=== PATIENT | female | born 1985 | race Caucasian/White ===

== ENCOUNTER 2020-08-24 00:59 | Outpatient (CLI) | payer BC ==
[~2020-08-24] VITALS: Ht 175.3 cm; Wt 90.5 kg
[2020-08-24 01:33] VITALS: BP 138/88
== END 2020-08-24 02:40 | disposition home or self-care (01) ==
LOC: LDOP 00:59
PROVIDERS: ATTEND Obstetrics & Gynecology
DX: O26.893 Other specified pregnancy related conditions, third trimester (principal); O46.93 Antepartum hemorrhage, unspecified, third trimester; R10.9 Unspecified abdominal pain; Z3A.39 39 weeks gestation of pregnancy
CPT/HCPCS: 59025

== ENCOUNTER 2020-08-24 20:42 | Inpatient (IN) | payer BC ==
[~2020-08-24] VITALS: Ht 175.3 cm; Wt 90.5 kg
[2020-08-24] MEDS ORDERED: NEWBORN KIT ONE (20:50)
[2020-08-24] MEDS ORDERED: MISOPROSTOL 200 MCG TABLET ONE (20:52)
[2020-08-24] MEDS ORDERED: LIDOCAINE 1%, 20ML ONE (20:52)
[2020-08-24 21:00] VITALS: BP 138/89
[2020-08-24] MEDS ORDERED: FENTANYL PF 100 MCG/2ML IV PRN (21:00)
[2020-08-24] MEDS ORDERED: FENTANYL PF 100 MCG/2ML IVPush PRN (21:00)
[2020-08-24] MEDS ORDERED: CALCIUM CARBONATE 500 MG TAB.CHEW PO PRN (21:00)
[2020-08-24] MEDS ORDERED: D5%-LACTATED RINGERS 1,000 ML IV SCH (21:00)
[2020-08-24] MEDS ORDERED: LACTATED RINGERS 1,000 ML IV SCH ×2 (21:00→21:30)
[2020-08-24] MEDS ORDERED: TERBUTALINE 1 MG/ML, 1ML SQ PRN (21:00)
[2020-08-24] MEDS ORDERED: ONDANSETRON 2MG/ML, 2ML IVPush PRN (21:00)
[2020-08-24] MEDS ORDERED: TERBUTALINE 1 MG/ML, 1ML IVPush PRN (21:00)
[2020-08-24] MEDS ORDERED: OXYTOCIN 30U/ 0.9% NaCL 500ML 500 ML IV ONE (21:00)
[2020-08-24] MEDS ORDERED: FENTANYL/BUPIV./NS/PF 250 ML EPIDCONT ONE (21:07)
[2020-08-24] MEDS ORDERED: BUPIVACAINE 0.25% ONE (21:07)
[2020-08-24] MEDS ORDERED: OXYTOCIN 30U/ 0.9% NaCL 500ML 500 ML ONE (21:13)
[2020-08-24] MEDS ORDERED: AMPICILLIN 2 GM in SODIUM CHLORIDE 0.9% 100 ML IVPB STA (21:19)
[2020-08-24 21:29] LABS: BASOPHILS % (AUTO) 1 % (0-1); EOSINOPHILS % (AUTO) 0 % (1-7); LYMPHOCYTES % (AUTO) 8 % (22-44); MEAN CORPUSCULAR HEMOGLOBIN 26.1 pg (27.0-34.8); MEAN CORPUSCULAR HGB CONC 32.6 g/dL (32.4-35.8); MEAN PLATELET VOLUME 8.5 fL (7.4-10.4); MONOCYTES % (AUTO) 8 % (2-9); NEUTROPHILS % (AUTO) 84 % (42-75); PLATELET COUNT 190 x10^3/uL (130-400); RED CELL DISTRIBUTION WIDTH 17.8 % (9.6-15.2)
[2020-08-24] MEDS ORDERED: NALOXONE 0.4 MG/ML, 1ML IVPush PRN (21:30)
[2020-08-24] MEDS ORDERED: FENTANYL/BUPIV./NS/PF 250 ML EPIDCONT SCH (21:30)
[2020-08-24] MEDS ORDERED: EPHEDRINE 50 MG/ML, 1ML IVPush PRN (21:30)
[2020-08-24] MEDS ORDERED: LACTATED RINGERS 1,000 ML IVBOLUS PRN (21:30)
[2020-08-24] MEDS ORDERED: OXYTOCIN 30U/ 0.9% NaCL 500ML 500 ML IV PRN (21:30)
[2020-08-24 21:33] LABS: MD NO
[2020-08-24] MEDS ORDERED: AMPICILLIN 2 GM in SODIUM CHLORIDE 0.9% 100 ML IVPB ONE (22:00)
[2020-08-24] MEDS ORDERED: EPHEDRINE 50 MG/ML, 1ML ONE (22:41)
[2020-08-25] MEDS ORDERED: AMPICILLIN 1 GM in SODIUM CHLORIDE 0.9% 100 ML IVPB SCH (03:00)
[2020-08-25] MEDS ORDERED: SIMETHICONE 80 MG CHEW TAB PO PRN (03:00)
[2020-08-25] MEDS: OXYTOCIN 30U/ 0.9% NaCL 500ML 500 ML IV SCH ×8 (03:00→23:00)
[2020-08-25] MEDS ORDERED: ACETAMINOPHEN 325 MG TABLET PO PRN ×2 (03:00)
[2020-08-25] MEDS ORDERED: MAGNESIUM HYDROXIDE 8%, 30ML UDC PO PRN (03:00)
[2020-08-25] MEDS ORDERED: OXYcodone IR 5MG TABLET PO PRN (03:00)
[2020-08-25] MEDS ORDERED: ONDANSETRON 2MG/ML, 2ML IV PRN (03:00)
[2020-08-25] MEDS ORDERED: OXYTOCIN 10 UNITS/ML, 1ML IM PRN (03:00)
[2020-08-25] MEDS ORDERED: METHYLERGONOVINE 0.2 MG/ML IM PRN (03:00)
[2020-08-25 04:50] VITALS: BP 137/81
[2020-08-25] MEDS: IBUPROFEN 800 MG TABLET PO PRN ×3 (05:17→21:53)
[2020-08-25 07:45] VITALS: BP 106/65
[2020-08-25 10:47] LABS: BASOPHILS % (AUTO) 0 % (0-1); EOSINOPHILS % (AUTO) 0 % (1-7); LYMPHOCYTES % (AUTO) 5 % (22-44); MEAN CORPUSCULAR HEMOGLOBIN 26.6 pg (27.0-34.8); MEAN PLATELET VOLUME 8.1 fL (7.4-10.4); MONOCYTES % (AUTO) 7 % (2-9); NEUTROPHILS % (AUTO) 87 % (42-75); PLATELET COUNT 189 x10^3/uL (130-400); RED BLOOD COUNT 4.15 x10^6/uL (3.82-5.3)
[2020-08-25 10:53] LABS: MD NO
[2020-08-25 13:00] VITALS: BP 115/72
[2020-08-25] MEDS: PRENATAL VIT/IRON/FA 1 EACH TABLET PO SCH (13:10)
[2020-08-25] MEDS: OXYcodone/APAP 5/325MG TABLET PO PRN ×3 (13:13→21:53)
[2020-08-25 17:15] VITALS: BP 118/74
[2020-08-25 19:15] VITALS: BP 122/77
[2020-08-25] MEDS: DOCUSATE 100 MG CAPSULE PO PRN (21:53)
[2020-08-25 23:28] VITALS: BP 102/60
[2020-08-26] MEDS: IBUPROFEN 800 MG TABLET PO PRN ×2 (06:49→14:56)
[2020-08-26 08:15] VITALS: BP 125/84
[2020-08-26] MEDS: DOCUSATE 100 MG CAPSULE PO PRN (08:28)
[2020-08-26] MEDS: PRENATAL VIT/IRON/FA 1 EACH TABLET PO SCH (08:28)
[2020-08-26] MEDS: OXYTOCIN 30U/ 0.9% NaCL 500ML 500 ML IV SCH (09:00)
[2020-08-26] MEDS ORDERED: PREN1TAB60 PO (15:14)
[2020-08-26] MEDS ORDERED: IBUP-1222 PO (15:14)
[2020-08-26] MEDS ORDERED: OXYC-302 PO (15:14)
== END 2020-08-26 17:56 | disposition home or self-care (01) | DRG 807 ==
LOC: LDOP 20:42 → LDIP 20:57 → 2NW 08-25 04:38
PROVIDERS: ADMIT Pediatrics; ATTEND Obstetrics & Gynecology
PROC: 10E0XZZ Delivery of Products of Conception, External Approach (ICD-10-PCS; principal; 2020-08-25)
PROC: 3E0R3BZ Introduction of Anesthetic Agent into Spinal Canal, Percutaneous Approach (ICD-10-PCS; 2020-08-25)
PROC: 00HU33Z Insertion of Infusion Device into Spinal Canal, Percutaneous Approach (ICD-10-PCS; 2020-08-25)
DX: O24.420 Gestational diabetes mellitus in childbirth, diet controlled (principal); Z37.0 Single live birth; O99.824 Streptococcus B carrier state complicating childbirth; Z3A.39 39 weeks gestation of pregnancy; Z20.822 Contact with and (suspected) exposure to COVID-19
CPT/HCPCS: 36415; 82962; 85025; 86592; 86850; 86900; 87635; G0378; J0290; J2590; J7120